=== PATIENT | female | born 1930 | race Caucasian/White ===

== ENCOUNTER → 2019-06-19 | Outpatient (CLI) | payer MEDICARE ==
[~2019-06-19] MED LIST: AMLODIPINE BESY10 MG PO; ASPIRIN81 M1 PO; CIPRO500 MG PO; DIABETA,MICRON2.5 MG PO; HYDR25T PO; LOPRESSOR100 M1 PO; PREDNISONE5 MG PO; PRESERVISION1 SGL PO; ZESTRIL10 MG PO; ZOCOR20 MG PO
[2019-06-19 09:39] LABS: BASO % 0.5 % (0.0-1.0); EOS # 0.2 10*3/uL (0.0-0.4); EOS % 3.8 % (1.0-4.0); HEMOGLOBIN 14.7 g/dl (12.0-16.0); LYMPH # 1.4 10*3/uL (1.3-4.4); LYMPH % 24.5 % (27.0-41.0); MEAN CELL VOLUME 88.1 fl (81.0-99.0); MEAN CORPUSCULAR HGB 30.1 pg (27.0-31.0); MEAN CORPUSCULAR HGB CONC 34.2 g/dl (33.0-37.0); MEAN PLATELET VOLUME 10.7 fl (9.6-12.3); MONO # 0.5 10*3/uL (0.1-1.0); MONO % 8.5 % (3.0-9.0); NEUT # 3.6 10*3/uL (2.3-7.9); NEUT % 62.4 % (47.0-73.0); PLATELET COUNT AUTOMATED 187 10*3/uL (130-400); RED BLOOD COUNT 4.88 10*6/uL (4.10-5.10); WHITE BLOOD COUNT 5.8 10*3/uL (4.8-10.8)
[2019-06-19 09:58] LABS: ALBUMIN 3.7 gm/dl (3.1-4.5); ALKALINE PHOSPHATASE 77 U/L (45-117); BUN 19 mg/dl (7-24); CHLORIDE 106 mmol/L (98-107); CHOLESTEROL 153 mg/dL (<200); CREATININE 0.94 mg/dL (0.55-1.02); FREE T4 0.99 ng/dl (0.76-1.46); HDL CHOLESTEROL 50 mg/dl (40-60); LDL CHOLESTEROL 70 mg/dL (9-159); POTASSIUM 4.9 mmol/L (3.5-5.1); SGOT/AST 13 IU/L (3-35); SGPT/ALT 16 U/L (12-78); SODIUM 141 mmol/L (136-145); TOTAL PROTEIN 7.2 gm/dL (6.4-8.2); TRIGLYCERIDES 163 mg/dl (<150); VLDL CHOLESTEROL 33 mg/dL (6-40)
[2019-06-19 10:18] LABS: VITAMIN D, 25-HYDROXY 26.7 ng/mL (30-100)
== END | disposition home or self-care (01) ==
LOC: LAB 08:43 → CARD 12:00
PROVIDERS: Internal Medicine
DX: I08.1 Rheumatic disorders of both mitral and tricuspid valves (principal); I10 Essential (primary) hypertension; E11.9 Type 2 diabetes mellitus without complications; E55.9 Vitamin D deficiency, unspecified; E78.2 Mixed hyperlipidemia; D52.9 Folate deficiency anemia, unspecified; D51.9 Vitamin B12 deficiency anemia, unspecified

== ENCOUNTER 2019-09-14 14:16 | Inpatient (IN) | payer MEDICARE ==
[~2019-09-14] VITALS: Ht 157.4 cm; Wt 70.1 kg
[2019-09-14 14:25] VITALS: BP 142/112
[2019-09-14 14:58] LABS: BASO # 0.1 10*3/uL (0.0-0.1); BASO % 0.4 % (0.0-1.0); EOS # 0.1 10*3/uL (0.0-0.4); EOS % 0.5 % (1.0-4.0); HEMATOCRIT 39.8 % (37.0-47.0); LYMPH # 1.8 10*3/uL (1.3-4.4); LYMPH % 11.6 % (27.0-41.0); MEAN CELL VOLUME 93.2 fl (81.0-99.0); MEAN CORPUSCULAR HGB 30.4 pg (27.0-31.0); MEAN CORPUSCULAR HGB CONC 32.7 g/dl (33.0-37.0); MEAN PLATELET VOLUME 10.5 fl (9.6-12.3); MONO # 1.1 10*3/uL (0.1-1.0); MONO % 6.8 % (3.0-9.0); NEUT # 12.7 10*3/uL (2.3-7.9); NEUT % 80.1 % (47.0-73.0); PLATELET COUNT AUTOMATED 383 10*3/uL (130-400); RED BLOOD COUNT 4.27 10*6/uL (4.10-5.10); RED CELL DISTRI WIDTH 13.9 % (0-14.5); WHITE BLOOD COUNT 15.9 10*3/uL (4.8-10.8)
[2019-09-14 15:09] LABS: ACT PARTIAL THROMBO TIME 23.1 SECONDS (20.0-32.1)
[2019-09-14 15:17] LABS: ALBUMIN 3.2 gm/dl (3.1-4.5); ALKALINE PHOSPHATASE 114 U/L (45-117); BUN 28 mg/dl (7-24); CHLORIDE 105 mmol/L (98-107); CREATININE 1.01 mg/dL (0.55-1.02); POTASSIUM 4.5 mmol/L (3.5-5.1); SGOT/AST 65 IU/L (3-35); SGPT/ALT 53 U/L (12-78); SODIUM 136 mmol/L (136-145); TOTAL PROTEIN 7.4 gm/dL (6.4-8.2)
[2019-09-14 15:19] LABS: TROPONIN I < 0.015 ng/ml (<0.045)
--- NOTE | 2019-09-14 15:21 | NUR ---
CRITICAL LAB: LA OF 2.7
--- NOTE | 2019-09-14 15:24 | NUR ---
1448 - NSR 67 129/59 RR27 BIPAP 93%. 1456 - 20MG ETOMIDATE ADMINISTERED. 1457 - 100MG SUCCINYLCHOLINE ADMINISTERED. 1459 - 22CM @ LIP, 7.5CM ETT TUBE. 1500 - 18 FR. OG TUBE. 1501 NSR 72. 138/72, RR 10 W/ BAGGING. PT INTUBATED ON DIPRIVAN, 20MCG, 9.1CC.
--- NOTE | 2019-09-14 15:27 | NUR ---
RESPIRATORY IN ROOM WITH PT AT THIS TIME. DIPRIVAN RUNNING AT THIS TIME.
[2019-09-14 15:37] VITALS: BP 128/64
--- NOTE | 2019-09-14 15:39 | NUR ---
RESPIRATORY CALLED TO TRAUMA BAY 2 FOR APPLICATION OF BIPAP. DURING ASSESSMENT PATIENT SEEMED DISTANT AND LUCID. DOCTOR ALERTED TO PATIENTS COGNITIVE STATE, AND TALKED TO FAMILY FOR FULL CODE STATUS.PATIENT IS A FULL CODE, SO DOCTOR ELECTED TO INTUBATE PATIENT. PATIENT WAS INTUBATED WITH A 7.5 MM ENDOTRACHEAL TUBE AT 22 CM AT THE LIP. CONFIRMED WITH CAPNOGRAPHY AND A CHEST X RAY, AND AUSCILTATION OF BOTH LUNGS BILATERAL BREATHS SOUNDS. DOCTOR AND NURSE PRESENT FOR OPERATION.
[2019-09-14 15:42] LABS: ABG BASE EXCESS -4.2 mmol/L (-2.0-2.0); ABG O2 SATURATION 98.1 % (95-97); ARTERIAL BLOOD GAS PCO2 59.7 mmHg (35-45); ARTERIAL BLOOD GAS PH 7.224 (7.35-7.45)
[2019-09-14 15:47] VITALS: BP 109/46
--- NOTE | 2019-09-14 16:25 | NUR ---
14:25 CALLED TO DEM. UPON ARRIVAL BIPAP INITIATED. 15/6 AND 60%. PRIOR TO BIPAP, PT ON 100% NRB. RR 32 AND LABORED. SPO2 94%. NO CHANGE IN RESP STATUS POST INTUBATION. THEREFORE, PT INTUBATED. SEE INTUBATION AND VENT NOTE
[2019-09-14 16:30] VITALS: BP 83/27
--- NOTE | 2019-09-14 16:30 | NUR ---
A 89, admitted to ICCU, under the services of Dr. PALOMO VALLES,SIA Amador with a diagnosis of CHF, RESP FAILURE.. Chief complaint is SHORTNESS OF BREATH. Patient arrived via ambulance from ER. Monitor applied. Initial assessment completed. Vital signs taken and recorded. DR. PALOMO VALLES,SIA Amador notified of admission to the unit. Orders received. See assessment for past medical history, medications and allergies. Patient and/or family oriented to unit. [facility] ICCU visitation policy reviewed. Clothing/patient valuable form completed. ADELINA PEREA
--- NOTE | 2019-09-14 16:57 | NUR ---
16:40 PT TRANPORTED TO ICU. PT BAGGED WITH 100% O2. PT STABLE T/O TRANPORT. UPON ARRIVAL TO ICU, PT PLACED BACK ON VENT. VENT CHECKED AND FUNCTIONING.
[2019-09-14] MEDS ORDERED: METOPROLOL SUC100 M2 PO (17:33)
[2019-09-14] MEDS ORDERED: VITAMIN D32000 UNI1 PO (17:34)
[2019-09-14] MEDS ORDERED: GLUCOPHAGE500 M1 PO (17:35)
[2019-09-14] MEDS ORDERED: HYDR25T PO (17:38)
--- NOTE | 2019-09-14 17:42 | NUR ---
DR. CULVER NOTIFIED OF ADMISSION TO FLOOR. NO FAMILY WITH PATIENT. MESSAGE LEFT WITH DAUGHTER MIGUEL TO CALL REGARDING PATIENT
[2019-09-14 18:33] LABS: ABG BASE EXCESS 0.3 mmol/L (-2.0-2.0); ABG O2 SATURATION 90.6 % (95-97); ARTERIAL BLOOD GAS PCO2 41.9 mmHg (35-45); ARTERIAL BLOOD GAS PH 7.39 (7.35-7.45); ARTERIAL BLOOD GAS PO2 57.6 mmHg (80-90)
--- NOTE | 2019-09-14 18:42 | NUR ---
DR. SAVAGE NOTIFIED OF CONSULT AND RECENT ABG RESULTS
[2019-09-14 19:30] LABS: ABG BASE EXCESS 0.7 mmol/L (-2.0-2.0); ABG HCO3 25.3 mmol/l (22-26); ABG O2 SATURATION 94.5 % (95-97); ARTERIAL BLOOD GAS PCO2 41.7 mmHg (35-45); ARTERIAL BLOOD GAS PH 7.398 (7.35-7.45); ARTERIAL BLOOD GAS PO2 68.4 mmHg (80-90)
--- NOTE | 2019-09-14 19:42 | NUR ---
CALLED DOCTOR SAVAGE WITH ABG'S NO NEW ORDERS AT THIS TIME.
[2019-09-14 20:00] VITALS: BP 91/34
[2019-09-14 22:00] VITALS: BP 104/39
[2019-09-15] VITALS (8 sets, daily range): BP systolic 99–117; BP diastolic 36–46
[2019-09-15 05:41] LABS: CREATININE 1.06 mg/dL (0.55-1.02); POTASSIUM 4.4 mmol/L (3.5-5.1)
[2019-09-15 06:45] LABS: BASO % 0.2 % (0.0-1.0); EOS # 0.1 10*3/uL (0.0-0.4); EOS % 0.9 % (1.0-4.0); HEMATOCRIT 31.6 % (37.0-47.0); HEMOGLOBIN 10.5 g/dl (12.0-16.0); LYMPH # 1.2 10*3/uL (1.3-4.4); LYMPH % 14.1 % (27.0-41.0); MEAN CELL VOLUME 93.8 fl (81.0-99.0); MEAN CORPUSCULAR HGB 31.2 pg (27.0-31.0); MEAN CORPUSCULAR HGB CONC 33.2 g/dl (33.0-37.0); MEAN PLATELET VOLUME 11.1 fl (9.6-12.3); MONO % 11.7 % (3.0-9.0); NEUT # 5.9 10*3/uL (2.3-7.9); NEUT % 72.7 % (47.0-73.0); PLATELET COUNT AUTOMATED 216 10*3/uL (130-400); RED BLOOD COUNT 3.37 10*6/uL (4.10-5.10); RED CELL DISTRI WIDTH 13.8 % (0-14.5); WHITE BLOOD COUNT 8.1 10*3/uL (4.8-10.8)
[2019-09-15 07:37] LABS: ABG BASE EXCESS 2.8 mmol/L (-2.0-2.0); ABG HCO3 26.2 mmol/l (22-26); ABG O2 SATURATION 97.9 % (95-97); ARTERIAL BLOOD GAS PCO2 38.2 mmHg (35-45); ARTERIAL BLOOD GAS PH 7.453 (7.35-7.45); ARTERIAL BLOOD GAS PO2 85.2 mmHg (80-90)
--- NOTE | 2019-09-15 07:52 | NUR ---
CALL DR. SAVAGE WITH BLOOD GAS RESULTS. NO FURTHER ORDERS AT THIS TIME.
[2019-09-15] MEDS ORDERED: LOPRESSOR100 M1 PO (10:23)
[2019-09-15] MEDS ORDERED: ASPIRIN ADULT L81 M1 PO (10:24)
[2019-09-15] MEDS ORDERED: NORVASC10 MG PO (10:24)
--- NOTE | 2019-09-15 14:30 | NUR ---
DR. CULVER IN TO SEE PATIENT AND DISCUSS PLAN OF CARE. ORDERS RECEIVED. ECHO PLANNED FOR TUESDAY.
--- NOTE | 2019-09-15 21:46 | NUR ---
COMPLETE BATH AND BED LINEN CHANGE DONE.
[2019-09-16] VITALS (9 sets, daily range): BP systolic 103–160; BP diastolic 31–80
[2019-09-16 05:53] LABS: CREATININE 1.07 mg/dL (0.55-1.02); POTASSIUM 3.9 mmol/L (3.5-5.1)
[2019-09-16 06:28] LABS: BASO % 0.3 % (0.0-1.0); EOS # 0.1 10*3/uL (0.0-0.4); EOS % 1.5 % (1.0-4.0); HEMOGLOBIN 10.5 g/dl (12.0-16.0); LYMPH # 1.1 10*3/uL (1.3-4.4); LYMPH % 17.4 % (27.0-41.0); MEAN CELL VOLUME 91.2 fl (81.0-99.0); MEAN CORPUSCULAR HGB 29.9 pg (27.0-31.0); MEAN CORPUSCULAR HGB CONC 32.8 g/dl (33.0-37.0); MEAN PLATELET VOLUME 10.6 fl (9.6-12.3); MONO # 0.7 10*3/uL (0.1-1.0); MONO % 11.2 % (3.0-9.0); NEUT # 4.5 10*3/uL (2.3-7.9); NEUT % 69.1 % (47.0-73.0); PLATELET COUNT AUTOMATED 199 10*3/uL (130-400); RED BLOOD COUNT 3.51 10*6/uL (4.10-5.10); RED CELL DISTRI WIDTH 13.6 % (0-14.5); WHITE BLOOD COUNT 6.5 10*3/uL (4.8-10.8)
[2019-09-16 07:27] LABS: ABG BASE EXCESS 6.7 mmol/L (-2.0-2.0); ABG HCO3 29.5 mmol/l (22-26); ABG O2 SATURATION 96.8 % (95-97); ARTERIAL BLOOD GAS PCO2 35.5 mmHg (35-45); ARTERIAL BLOOD GAS PH 7.529 (7.35-7.45); ARTERIAL BLOOD GAS PO2 72.8 mmHg (80-90)
--- NOTE | 2019-09-16 08:12 | NUR ---
Shift chart check completed.24 HR chart check completed. On assessment patient is alert, on Diprivan at 20mcg/kg/min. She's nodding/shaking her head to questions therefore sedation vacation not done. Repositioned for comfort. Remains intubated, on ventilator, assiting at all times. Salazar patent pale clear yellow urine. OGT in place with Pulmocare at 30ml/hr. See all appropriate interventions.
--- NOTE | 2019-09-16 10:51 | NUR ---
PHYSICAL THERAPY ATTEMPTED PT EVAL TODAY HOWEVER PER NURSING(GARRET) PATIENT IS ON VENT AND NOT PT APPROPRIATE AT THIS TIME. WILL CONTINUE TO ASSESS FOR IMPROVEMENT AND WILL ASSESS WHEN MEDICALLY STABLE . THANK YOU FOR REFERRAL JOSE J HERZOG PT
--- NOTE | 2019-09-16 13:18 | NUR ---
RESTING EASILY. HAS BEEN REPOSITIONED Q2H AND PRN. REMAINS EASILY AROUSED ON DIPRIVAN AT 20MCG/KG/MIN. TUBE FEEDINGS CONTINUE. PT HAS DIURESED >1500 ML THIS SHIFT.
--- NOTE | 2019-09-16 13:43 | NUR ---
DR SAVAGE CALLED IN TO CHECK ON PATIENT. HE'S ON HIS WAY TO HOSPITAL. CHECKED ON STATUS OF PATIENT. ORDERS RECEIVED. DIPRIVAN DECREASED FROM 20MCG/KG/MIN TO 5MCG/KG/MIN. RESPIRATORY THERAPY HERE TO CHANGE VENTILATOR TO CPAP-5/PS-10. EXPLANATIONS TO PATIENT.
--- NOTE | 2019-09-16 13:56 | NUR ---
RESTING EASILY SINCE PLACED ON CPAP/PS.
--- NOTE | 2019-09-16 14:58 | NUR ---
REPOSITIONED FOR COMFORT. REASSURANCES GIVEN. TOLERATING CPAP WELL.
[2019-09-16 16:06] LABS: ABG BASE EXCESS 7.2 mmol/L (-2.0-2.0); ABG HCO3 30.6 mmol/l (22-26); ARTERIAL BLOOD GAS PCO2 38.6 mmHg (35-45); ARTERIAL BLOOD GAS PH 7.51 (7.35-7.45)
--- NOTE | 2019-09-16 16:29 | NUR ---
14:20 PT EXTUBATED WITHOUT INCIDENT. PT PLACED ON 4 L NC. NO STRIDOR. BBSs EQUAL, GOOD AERATION, MILD RHONCHI RUL. RESPS REGULAR AND UNLABORED. SPO2 98% HR 106 RR 12-16. VENT ON S/B.
--- NOTE | 2019-09-16 17:22 | NUR ---
ABG'S WERE DONE AT 1550. DR SAVAGE ARRIVED, EXAMINED PT. AT 1620 PT EXTUBATED BY RESPIRATORY THERAPY. OGT REMOVED WELL. PLACED ON 4L/MIN NASAL CANNULA. RESTRAINTS REMOVED. PT HOARSE, NON-PRODUCTIVE COUGH. PT ENCOURAGED TO COUGH AND DEEP BREATHE. FAMILY IN TO SEE PT. EXPLANATIONS ABOUT NPO STATUS FOR 4 HOURS POST EXTUBATION.
--- NOTE | 2019-09-16 18:03 | NUR ---
FAMILY IN TO VISIT. OCCASIONAL HOARSE, NON PRODUCTIVE COUGH.
--- NOTE | 2019-09-16 20:13 | NUR ---
PT REMAINS IN NO DISTRESS AND VERY PLEASANT. SHE TAKES PO LIQUIDS WITH EASE AND ATE AN ENTIRE POPSICLE WITH NO DIFFICULTIES. VSS. PULSE OX 98% ON NC3.
[2019-09-17] VITALS: BP 136/50
[2019-09-17 04:00] VITALS: BP 130/48
[2019-09-17 05:08] LABS: BUN 17 mg/dl (7-24); CHLORIDE 105 mmol/L (98-107); CREATININE 0.94 mg/dL (0.55-1.02); POTASSIUM 3.9 mmol/L (3.5-5.1); SODIUM 141 mmol/L (136-145)
[2019-09-17 05:57] LABS: BASO % 0.4 % (0.0-1.0); EOS # 0.1 10*3/uL (0.0-0.4); EOS % 2.1 % (1.0-4.0); HEMATOCRIT 35.9 % (37.0-47.0); HEMOGLOBIN 11.8 g/dl (12.0-16.0); LYMPH % 15.1 % (27.0-41.0); MEAN CELL VOLUME 90.9 fl (81.0-99.0); MEAN CORPUSCULAR HGB 29.9 pg (27.0-31.0); MEAN CORPUSCULAR HGB CONC 32.9 g/dl (33.0-37.0); MEAN PLATELET VOLUME 10.4 fl (9.6-12.3); MONO # 0.7 10*3/uL (0.1-1.0); MONO % 10.4 % (3.0-9.0); NEUT # 4.9 10*3/uL (2.3-7.9); NEUT % 71.4 % (47.0-73.0); PLATELET COUNT AUTOMATED 216 10*3/uL (130-400); RED BLOOD COUNT 3.95 10*6/uL (4.10-5.10); RED CELL DISTRI WIDTH 13.5 % (0-14.5); WHITE BLOOD COUNT 6.8 10*3/uL (4.8-10.8)
--- NOTE | 2019-09-17 06:19 | NUR ---
PT HAS SLEPT WELL THROUGHOUT THE NIGHT. JOKING, SMILING.
[2019-09-17 08:00] VITALS: BP 143/55
--- NOTE | 2019-09-17 09:00 | NUR ---
Hem Marker in to talk to patient. Patient states lives at home alone with her daughter living next door, her grandson and his living [place], and her granddaughter living in [place]. There are 4 steps in the home. Physician: Dr. Mckenna Carmona Pharmacy: [facility] services: none Patient's level of ADLs: INDEPENDENT Patient has working utilities: yes DME: none Follow-up physician's appointment after d/c: she prefers to make her own follow up appt after discharge Does patient want to access PORTAL?: no Discharge plan discussed with patient. She lives at home with her family checking in on her. She is independent in her ADLs and ambulation. Discussed short term SNF and home health care services and she refuses. When medically stable she will be discharged to home. Her daughter will provide transportation on discharge. She was extubated yesterday. JAMES KEMP
--- NOTE | 2019-09-17 09:00 | NUR ---
DR SAVAGE IN TO SEE PT.
--- NOTE | 2019-09-17 10:20 | NUR ---
DR CULVER IN TO SEE PT. UPDATED HIM ON PT'S CONDITION AND DR SAVAGE'S RECOMENDATIONS. NEW ORDERS RECEIVED.
[2019-09-17 12:00] VITALS: BP 137/50
--- NOTE | 2019-09-17 12:25 | NUR ---
PHYSICAL THERAPY Ashlie completed full report to follow pt moderate level of [id number] PT to work on transfers, ambulation and strengthening would benefit from SNF further therapy, but per pt and dgtr will go home discussed HH. Abeba Das
--- NOTE | 2019-09-17 13:28 | NUR ---
DR HERNADEZ IN TO SEE PT. NEW ORDERS RECEIVED.
[2019-09-17 16:00] VITALS: BP 123/42
--- NOTE | 2019-09-17 16:44 | NUR ---
PT REMAINS SITTING IN THE CHAIR. PT'S FAMILY IN TO VISIT. NO ACUTE DISTRESS NOTED AT THIS TIME. WILL CONTINUE TO MONITOR PT.
--- NOTE | 2019-09-17 17:34 | NUR ---
PT UP TO BSC TO URINATE. PT'S HR INCREASED TO 128. PO LOPRESSOR GIVEN PER ROUTINE ORDER. WILL CONITNUE TO MONITOR PT.
--- NOTE | 2019-09-17 19:59 | NUR ---
PATIENT UP IN CHAIR, STATES SHE IS FEELING MUCH BETTER, DENIES ANY SHORTNESS OF BREATH. NO PAIN. PATIENT HOPING TO BE HOME FOR THANKSGIVING. VITAL SIGNS STABLE. PATIENT HAS NO NEEDS AT THIS TIME. PATIENT LEFT WITH CALL LIGHT IN REACH.
[2019-09-17 20:01] VITALS: BP 127/48
--- NOTE | 2019-09-17 20:21 | NUR ---
24 HR chart check completed.
[2019-09-18] VITALS (8 sets, daily range): BP systolic 92–147; BP diastolic 25–81
--- NOTE | 2019-09-18 07:49 | NUR ---
Shift chart check completed.24 HR chart check completed.
--- NOTE | 2019-09-18 08:28 | NUR ---
PHYSICAL THERAPY Patient presented to therapy in sitting position in bedside chair with 2 liters of spO2 via nasal canula. Patient gives informed consent for treatment. Patient was identified by name and on wristband. Patient performed sit to stand transfer x 3 with SBA. Patient ambulated 60' x 3 with SBA inside of room using bed to hold onto with one hand while she ambulated. Patient had no LOB while ambulating. Patient was not SOB while ambulating. Patient's O2 SAT WAS RECORDED 96% and pulse 82, post ambulating 60' x 3 with no assistive device. Patient sat in bedside chair and performed LAQs, marches and heel/toe raises x 20 each for strengthening the LEs in order to improve patient's functional mobility. Patient performed 30 SECONDS SIT TO STAND TEST with 10 sit to stands performed in 30 seconds total with SBA from bedside chair. Patient was left in bedside chair with call light within reach, 2 liters of spO2 connected to the wall, and tray table in front of patient. Patient was 1:1 with this EQUIPMENT MAINTENANCE SUPERINTENDENT for 24 minutes total. NAVI ARRIOLA EQUIPMENT MAINTENANCE SUPERINTENDENT
--- NOTE | 2019-09-18 09:00 | NUR ---
Home Help Aide in to see patient. She is sitting up in her bedside chair without distress noted. She denies any home needs. When medically stable she will be discharged to home. She is being diuresed with [facility]. Dr. Selby and Dr. Vargas are following.
--- NOTE | 2019-09-18 09:59 | NUR ---
VANDA CULVER, JANETTE, AND MARICARMEN HAVE ALL VISITED. NASAL O2 REMOVED. PT AMBULATED IN GOFF WITH HR RAISING ONLY TO 110 AND PULSE OX NO LOWER THAN 90%. BACK TO CHAIR. DAUGHTER VISITING. PT TOLD TO LET US KNOW IF ANY SHORTNESS OF BREATH.
--- NOTE | 2019-09-18 11:25 | NUR ---
DR CULVER NOTIFIED OF ELEVATED BSBS. ORDERS RECEIVED.
--- NOTE | 2019-09-18 13:25 | NUR ---
PT MOVED WITH ALL OF HER BELONGINGS, ON TELEMETRY, TO [facility], VIA , IN STABLE CONDITION. HER DAUGHTER NOTIFIED VIA PHONE.
--- NOTE | 2019-09-18 14:05 | NUR ---
PHYSICAL THERAPY Patient seen this pm 1;1 for therapy visit and was sitting up on EOB talking to her Nurse upon therapist arrival. Patient identified by name / and was very pleasant this afternoon, however very MATCH-E-BE-NASH-SHE-WISH BAND. Patient reports no new c/o's and transfers sit to stand CGA, ambulating SUPERINTENDENT LOCAL/CGA, 50'x 2, demonstrating very slow bryn with decreased stride. Patient reached for hand rail several times in route to stairwell for stair training and needed brief standing rest break prior to navigating up/down 4 steps. CGA, with single hand rail support. Patient demonstrated alternating step seqeunce upon ascent and single step bryn descending. Patient returned to EOB sit with mild fatigue and recorded resting HR 75 bpm prior to treatment. Slight increase in HR 82 bpm during initial gait then 92 bpm following stair ex. Patient returned to 78 bpm upon seated rest EOB and remained with call light, tray table and telephone. Will continue per POC as tolerated, total treatment time 18 minutes. Jose E Haney, RESPITE COORDINATOR
[2019-09-19] VITALS: BP 113/44
[2019-09-19 08:00] VITALS: BP 130/62
--- NOTE | 2019-09-19 08:00 | NUR ---
Supply Clerk in to see patient. No new needs or request a this time. She states Dr. Selby was in and said she could be discharged today. She is hoping to go home. Notified Dr. Gottlieb. She denies any home needs. When medically stable she will be discharged to home.
[2019-09-19] MEDS ORDERED: METOPROLOL TART50 M1 PO (08:54)
[2019-09-19] MEDS ORDERED: LISINOPRIL2.5 MG PO (08:54)
--- NOTE | 2019-09-19 09:25 | NUR ---
PHYSICAL THERAPY Patient seen this am 1:1 for therapy visit and was sitting up in bedside chair upon therapist arrival. Patient identified by name / and reports no new c/o's at this time. Patient was very pleasant this morning transfering with Supervision and ambulates MANAGER WILLOW/CGA, ad meghana in hallway, > 150'x 1, demonstrating slow, steady bryn and no LOB. Patient able to tolerate eyes open/closed without LOB and backward walk, 5'x 2, SBA. Patient returned to bedside chair and remained with call light and telephone. Will continue per POC as tolerated, total treatment time 16 minutes. Jose E Haney, PULMONARY PHYSICAL THERAPIST
--- NOTE | 2019-09-19 09:49 | NUR ---
PER DR. HERNADEZ PT MAY BE DISCHARGED FROM THEIR STANDPOINT.
--- NOTE | 2019-09-19 10:42 | NUR ---
DISCHARGE INSTRUCTIONS REVIEWED. HEPLOCKS REMOVED.
--- NOTE | 2019-09-19 10:43 | NUR ---
PT AMBULATED OFF THE FLOOR AT THIS TIME WITH HER FAMILY TO A PRIVATE VEHICLE.
--- NOTE | 2019-09-19 14:58 | NUR ---
PHYSICAL THERAPY CO-SIGN I approve of the Physical Therapy notes written above. Abeba Tidwell PT
== END 2019-09-19 10:43 | disposition home or self-care (01) | DRG 208 ==
LOC: ED 14:16 → ICCU 15:24 → EDHOLD 15:24 → ICCU 16:13 → 4E 09-18 13:23
PROVIDERS: Emergency Medicine; Internal Medicine Critical Care Medicine; ADMIT Internal Medicine
PROC: 5A1945Z Respiratory Ventilation, 24-96 Consecutive Hours (ICD-10-PCS; principal; 2019-09-14)
PROC: 0BH17EZ Insertion of Endotracheal Airway into Trachea, Via Natural or Artificial Opening (ICD-10-PCS; principal; 2019-09-14)
DX: J96.01 Acute respiratory failure with hypoxia (principal); I50.33 Acute on chronic diastolic (congestive) heart failure; J96.02 Acute respiratory failure with hypercapnia; I11.0 Hypertensive heart disease with heart failure; R94.5 Abnormal results of liver function studies; I08.0 Rheumatic disorders of both mitral and aortic valves; I49.8 Other specified cardiac arrhythmias; E11.65 Type 2 diabetes mellitus with hyperglycemia; D64.9 Anemia, unspecified; E55.9 Vitamin D deficiency, unspecified; E78.2 Mixed hyperlipidemia; J45.20 Mild intermittent asthma, uncomplicated; R79.89 Other specified abnormal findings of blood chemistry; T50.2X5A Adverse effect of carbonic-anhydrase inhibitors, benzothiadiazides and other diuretics, initial encounter; Y92.238 Other place in hospital as the place of occurrence of the external cause; Z82.49 Family history of ischemic heart disease and other diseases of the circulatory system; Z82.5 Family history of asthma and other chronic lower respiratory diseases

== ENCOUNTER → 2019-10-08 | Outpatient (CLI) | payer MEDICARE ==
[~2019-10-08] MED LIST changes: +ASPIRIN ADULT L81 M1 PO; +GLUCOPHAGE500 M1 PO; +LISINOPRIL2.5 MG PO; +METOPROLOL SUC100 M2 PO; +METOPROLOL TART50 M1 PO; +NORVASC10 MG PO; +VITAMIN D32000 UNI1 PO
== END | disposition home or self-care (01) ==
LOC: RAD 11:52
DX: J98.4 Other disorders of lung (principal); I51.7 Cardiomegaly

== ENCOUNTER → 2022-04-08 | Outpatient (CLI) | payer MEDICARE | END | disposition home or self-care (01) | LOC: CARD 12:00 | PROVIDERS: ATTEND Internal Medicine | DX: I08.0 Rheumatic disorders of both mitral and aortic valves (principal) ==